=== PATIENT | female | born 1980 | race Caucasian/White ===

== ENCOUNTER 2017-04-18 06:38 | Emergency (ER) | payer MEDICAID ==
[2017-04-18 07:10] LABS: Bilirubin,Urine NEG (Negative); Blood,Urine NEG (Negative); Ketones,Urine NEG (Negative); Leukocyte Esterase,Urine NEG (Negative); Mucus,Urine FEW /HPF; Nitrite,Urine NEG (Negative); Protein,Urine <15 mg/dL mg/dL (Negative); Urobilinogen,Urine < 2.0 mg/dL (<2.0)
[2017-04-18 07:15] LABS: Basophils % (Auto) 0.4 % (0.0-1.8); Eosinophils % (Auto) 1.1 % (0.0-4.3); Hematocrit 39.5 % (30.3-42.9); Hemoglobin 13.2 gm/dl (10.1-14.3); Mean Corpuscular HGB Conc 33 % (30-34); Mean Corpuscular Hemoglobin 29 pg (28-32); Mean Corpuscular Volume 86 fl (79-97); Platelet Count 261 K/mm3 (140-440); Red Cell Distribution Width 13.1 % (13.2-15.2); White Blood Count 11.4 K/mm3 (4.5-11.0)
[2017-04-18 07:24] LABS: Alanine Aminotransferase 77 units/L (7-56); Albumin 4.1 g/dL (3.9-5); Albumin/Globulin Ratio 1.2 %; Alkaline Phosphatase 80 units/L (35-129); Anion Gap 16 mmol/L; BUN/Creatinine Ratio 22; Blood Urea Nitrogen 11 mg/dL (7-17); Calcium 8.7 mg/dL (8.4-10.2); Carbon Dioxide 25 mmol/L (22-30); Chloride 102.7 mmol/L (98-107); Glucose 105 mg/dL (65-100); Potassium 4.1 mmol/L (3.6-5.0); Sodium 140 mmol/L (137-145); Total Protein 7.5 g/dL (6.3-8.2)
[2017-04-18] MEDS ORDERED: ANTIVERT PO ONE (12:41)
--- NOTE | 2017-04-18 12:43 | Emergency Department Report ---
HPI - General Chief Complaint: Dizziness Time Seen by Provider: 04/18/17 12:33 - HPI HPI: This is a 36-year-old female presents to the emergency department, driving himself in to be seen, with a complaint of a 3 week history of a headache and almost a 1 week history of some dizziness/vertigo. Headache is mostly to the frontal, bitemporal and sometimes posterior portions of the head. It started off intermittent but has now become pretty constant. She denies any vision change, slurred speech or any neurological deficits but does have some occasional photophobia. She has not taken anything for her symptoms prior to presentation. Over the past 5-6 days, the patient has started having some dizziness that she describes as a room spinning sensation and multiple different positions. She denies any past medical history. She does not have a primary care physician. No recent travel or sick contacts at home. ED Past Medical Hx - Past Medical History Previous Medical History?: No Hx Hypertension: No Hx Congestive Heart Failure: No Hx Diabetes: No Hx Deep Vein Thrombosis: No Hx Renal Disease: No Hx Sickle Cell Disease: No Hx Seizures: No Hx Asthma: No Hx COPD: No Hx HIV: No - Surgical History Past Surgical History?: Yes Additional Surgical History: RIGHT LOWER LEG SURGERY, tubal ligation - Social History Smoking Status: Never Smoker Substance Use Type: None - Medications Home Medications: Home Medications Medication Instructions Recorded Confirmed Last Taken Type Acetaminophen/Codeine [Tylenol #3] 1 tab PO Q4HR PRN 05/12/15 12/19/15 05/10/15 10:00 History Vit-Fe Fumar-FA [ 1 tab PO QDAY #30 tablet 05/12/15 12/19/15 Unknown Rx Vitamin] HYDROcodone/APAP 5-325 [[place] 1 each PO Q6HR PRN #30 tablet 12/20/15 Unknown Rx 5/325] Ibuprofen [Motrin 600 MG tab] 600 mg PO Q6HR PRN #60 tablet 12/20/15 Unknown Rx Meclizine [Antivert] 25 mg PO TID PRN #12 tablet 04/18/17 Unknown Rx ED Review of Systems ROS: Stated complaint: H/A; DIZZINESS Other details as noted in HPI Comment: All other systems reviewed and negative Constitutional: denies: chills, fever Eyes: denies: eye pain, eye discharge, vision change ENT: denies: ear pain, throat pain Respiratory: denies: cough, shortness of breath, wheezing Cardiovascular: denies: chest pain, palpitations Gastrointestinal: denies: abdominal pain, nausea, diarrhea Genitourinary: denies: urgency, dysuria, discharge Musculoskeletal: denies: back pain, joint swelling, arthralgia Skin: denies: rash, lesions Neurological: headache, vertigo Physical Exam - Physical Exam Vital Signs: Vital Signs 04/18/17 06:45 Temperature 98.0 F Pulse Rate 70 Respiratory 18 Rate Blood Pressure 123/65 O2 Sat by Pulse 97 Oximetry Physical Exam: GENERAL: The patient is well-developed well-nourished. HENT: Normocephalic. Atraumatic. Patient has moist mucous membranes. EYES: Extraocular motions are intact. Pupils equal reactive to light bilaterally. There is some mild fatigable horizontal mastitis. NECK: Supple. No meningitic signs are noted. Trachea is midline. CHEST/LUNGS: Clear to auscultation. There is no respiratory distress noted. HEART/CARDIOVASCULAR: Regular. There is no tachycardia. There is no gallop rub or murmur. ABDOMEN: Abdomen is soft, nontender. Patient has normal bowel sounds. There is no abdominal distention. SKIN: Skin is warm and dry. NEURO: The patient is awake, alert, and oriented. The patient is cooperative. The patient has no focal neurologic deficits. The patient has normal speech and gait. Cranial nerves II through XII grossly intact. No dysmetria. No pronator drift. MUSCULOSKELETAL: There is no tenderness or deformity. There is no limitation range of motion. There is no evidence of acute injury. ED Course Vital Signs 04/18/17 06:45 Temperature 98.0 F Pulse Rate 70 Respiratory 18 Rate Blood Pressure 123/65 O2 Sat by Pulse 97 Oximetry ED Medical Decision Making - Lab Data Result diagrams: 04/18/17 06:51 04/18/17 06:51 - Radiology Data Radiology results: report reviewed CT HEAD WITHOUT CONTRAST: 04/18/17 12:49 CLINICAL: Headache and dizziness.. TECHNIQUE: 2.5-mm noncontrast scans. COMPARISON:None FINDINGS: The ventricles and sulci are normal for age. No abnormal density. No mass or mass effect. No hemorrhage, edema or extra-axial collection. The sinuses are clear. Normal orbits and soft tissues. The calvarium and skull base are intact. IMPRESSION: Normal. Transcribed By: REF Dictated By: PEEWEE RESTREPO MD Electronically Authenticated By: PEEWEE RESTREPO MD Signed Date/Time: 04/18/17 8459 - Medical Decision Making The patient was reevaluated multiple times for multiple hours and now says that she is doing "much better." CT of the head did not show any ischemia, shift, bleed, mass or any other acute process. She has no focal, motor or sensory deficits in her cranial nerves are intact. She received some Antivert for the vertigo and it has completely resolved. The HINTS exam did not appear to show any concern for posterior or cerebellar stroke and the patient has a NIH stroke scale of 0. Vital signs stable throughout her ED course. Labs are mostly unremarkable except for some elevation in the liver enzymes. She is not having any abdominal pain and does not appear to be on any medications that might cause this or any significant alcohol history. However she appears safe for discharge home at this time. She'll be given multiple referrals for primary care to follow up regarding this lab abnormality as well as a annual physical examination. She will return to the ER with any worsening of her symptoms or any acute distress. Discharge instructions were given while in the emergency department and all questions been answered. - Differential Diagnosis tension headache, migraine, cluster headache, TIA Critical Care Time: No Critical care attestation.: If time is entered above; I have spent that time in minutes in the direct care of this critically ill patient, excluding procedure time. ED Disposition Clinical Impression: Vertigo, Elevated liver enzymes Headache Qualifiers: Headache type: unspecified Headache chronicity pattern: unspecified pattern Intractability: not intractable Qualified Code(s): R51 - Headache Disposition: DC-01 TO HOME OR SELFCARE Is pt being admited?: No Condition: Stable Instructions: Vertigo (ED), Acute Headache (ED) Additional Instructions: Please follow up with a primary care physician in the next few days. Return to the emergency Department with any worsening of your symptoms or any acute distress. Prescriptions: Meclizine [Antivert] 25 mg PO TID PRN #12 tablet PRN Reason: Vertigo Referrals: KIMBERLY CHAVARRIA MD [Staff Physician] - 3-5 Days MICKEY BARAHONA MD [Staff Physician] - 3-5 Days [facility] [Outside] - 3-5 Days Time of Disposition: 15:04
--- NOTE | 2017-04-18 13:13 | Cat Scan Report ---
CT HEAD WITHOUT CONTRAST: 04/18/17 12:49 CLINICAL: Headache and dizziness.. TECHNIQUE: 2.5-mm noncontrast scans. COMPARISON:None FINDINGS: The ventricles and sulci are normal for age. No abnormal density. No mass or mass effect. No hemorrhage, edema or extra-axial collection. The sinuses are clear. Normal orbits and soft tissues. The calvarium and skull base are intact. IMPRESSION: Normal.
[2017-04-18] MEDS ORDERED: TORADOL IM ONE (13:36)
[2017-04-18 15:45] VITALS: BP 111/53
== END 2017-04-18 15:46 | disposition home or self-care (01) ==
LOC: ED 06:38
DX: R51 Headache (principal); R42 Dizziness and giddiness; R94.5 Abnormal results of liver function studies
CPT/HCPCS: 36415; 70450; 80053; 81001; 81025; 84443; 85025; 96372; 99284; J1885